=== PATIENT | female | born 1990 | race African-American/Black ===

== ENCOUNTER 2017-12-19 10:11 | Emergency (ER) | payer BC ==
[~2017-12-19] VITALS: Ht 157.5 cm; Wt 83.8 kg
[~2017-12-19 10:11] MED LIST: MOTRIN600 MG PO; ROBITUSSIN AC,T10 ML PO
[2017-12-19 12:19] VITALS: BP 121/74
== END 2017-12-19 12:20 | disposition home or self-care (01) ==
LOC: EME 10:11
DX: J02.0 Streptococcal pharyngitis (principal); R13.10 Dysphagia, unspecified
CPT/HCPCS: 99281; 99284; J0561; J1100; J1885